=== PATIENT | female | born 1960 | race Caucasian/White ===

== ENCOUNTER 2017-05-20 09:30 | Outpatient (CLI) | payer OTHER | END 2017-05-20 09:40 | disposition home or self-care (01) | LOC: SONOGRAMA 09:30 | DX: E04.2 Nontoxic multinodular goiter (principal) ==

== ENCOUNTER 2018-05-19 09:14 | Outpatient (CLI) | payer OTHER | END 2018-05-19 09:21 | disposition home or self-care (01) | LOC: SONOGRAMA 09:14 | DX: E04.2 Nontoxic multinodular goiter (principal) ==